=== PATIENT | male | born 1955 | race Native Hawaiian/Other Pacific Islander ===

== ENCOUNTER 2017-06-06 10:11 | Emergency (ER) | payer OTHER ==
[~2017-06-06] VITALS: Ht 162.6 cm; Wt 86.2 kg
[2017-06-06 10:15] VITALS: BP 142/80; TEMP 97.9
== END 2017-06-06 10:41 | disposition home or self-care (01) ==
LOC: ED 10:11
DX: R05 Cough (principal); R09.89 Other specified symptoms and signs involving the circulatory and respiratory systems; R09.81 Nasal congestion
CPT/HCPCS: 99281

== ENCOUNTER 2018-03-28 13:16 | Outpatient (CLI) | payer OTHER ==
[2018-03-28 13:34] LABS: POTASSIUM 3.5 mmol/L (3.6-5.2)
[2018-04-16] MEDS ORDERED: ASPIR-8181 MG PO (15:29)
[2018-04-16] MEDS ORDERED: ACET-689 PO (15:29)
[2018-04-16] MEDS ORDERED: CARV12.5 PO (15:30)
[2018-04-16] MEDS ORDERED: FURO40TA93 PO (15:30)
[2018-04-16] MEDS ORDERED: PRASUGREL10 MG PO (15:30)
[2018-04-16] MEDS ORDERED: OMEPRAZOLE20 M1 PO (15:31)
[2018-04-16] MEDS ORDERED: GLIP10TA55 PO (15:32)
[2018-04-16] MEDS ORDERED: BUMETANIDE2 MG PO (15:32)
[2018-04-16] MEDS ORDERED: BUMEX2 MG PO (18:45)
[2018-04-16] MEDS ORDERED: INSUINJP SC (18:48)
== END 2018-03-28 19:35 | disposition home or self-care (01) ==
LOC: LABW 13:16
PROVIDERS: Internal Medicine Cardiovascular Disease
DX: I42.9 Cardiomyopathy, unspecified (principal); Z79.899 Other long term (current) drug therapy
CPT/HCPCS: 36415; 80048; 83880

== ENCOUNTER 2018-04-17 20:14 | Outpatient (CLI) | payer OTHER ==
[~2018-04-17 20:14] MED LIST: ACET-689 PO; ASPIR-8181 MG PO; BUMETANIDE2 MG PO; BUMEX2 MG PO; CARV12.5 PO; FURO40TA93 PO; GLIP10TA55 PO; INSUINJP SC; OMEPRAZOLE20 M1 PO; PRASUGREL10 MG PO
== END 2018-04-17 21:21 | disposition short-term general hospital (02) ==
LOC: AMB 20:14
DX: R07.89 Other chest pain (principal)
CPT/HCPCS: A0425; A0427

== ENCOUNTER 2018-05-10 10:12 | Outpatient (CLI) | payer OTHER ==
[2018-05-10 10:34] LABS: PLATELET COUNT 168 K/uL (142-355)
[2018-05-10 10:52] LABS: PARTIAL THROMBOPLASTIN TIME 24.4 SECONDS (24.5-33.6)
== END 2018-05-10 20:08 | disposition home or self-care (01) ==
LOC: LABW 10:12
PROVIDERS: Surgery
DX: Z01.812 Encounter for preprocedural laboratory examination (principal); I70.221 Atherosclerosis of native arteries of extremities with rest pain, right leg; Z51.81 Encounter for therapeutic drug level monitoring
CPT/HCPCS: 36415; 80048; 85027; 85610; 85730

== ENCOUNTER 2018-10-20 18:44 | Emergency (ER) | payer OTHER ==
[~2018-10-20] VITALS: Ht 162.6 cm; Wt 80.7 kg
[2018-10-20 20:18] LABS: PLATELET COUNT 156 K/uL (142-355)
[2018-10-20 20:23] LABS: POTASSIUM 3.6 mmol/L (3.6-5.2)
[2018-10-20 21:30] VITALS: BP 137/69; TEMP 98.5
== END 2018-10-20 21:43 | disposition home or self-care (01) ==
LOC: ED 18:44
PROVIDERS: Emergency Medicine
DX: L89.620 Pressure ulcer of left heel, unstageable (principal)
CPT/HCPCS: 36415; 80053; 85027; 87070; 87077; 87186; 87205; 99283; J0696

== ENCOUNTER 2019-01-15 16:30 | Outpatient (CLI) | payer OTHER ==
[2019-01-15 18:06] LABS: PLATELET COUNT 198 K/uL (142-355)
[2019-01-15 18:19] LABS: POTASSIUM 3.7 mmol/L (3.6-5.2)
== END 2019-01-15 19:51 | disposition home or self-care (01) ==
LOC: LAB 16:30
PROVIDERS: Internal Medicine Infectious Disease
DX: M86.072 Acute hematogenous osteomyelitis, left ankle and foot (principal)
CPT/HCPCS: 80048; 85027

== ENCOUNTER 2019-01-22 11:32 | Outpatient (CLI) | payer OTHER ==
[2019-01-22 13:43] LABS: POTASSIUM 3.9 mmol/L (3.6-5.2)
[2019-01-22 17:08] LABS: PLATELET COUNT 233 K/uL (142-355)
== END 2019-01-22 19:15 | disposition home or self-care (01) ==
LOC: LAB 11:32
PROVIDERS: Internal Medicine Infectious Disease
DX: M86.072 Acute hematogenous osteomyelitis, left ankle and foot (principal)
CPT/HCPCS: 80048; 85027

== ENCOUNTER 2019-01-29 16:45 | Outpatient (CLI) | payer OTHER ==
[2019-01-29 21:27] LABS: PLATELET COUNT 303 K/uL (142-355)
[2019-01-29 22:08] LABS: POTASSIUM 3.8 mmol/L (3.6-5.2)
== END 2019-01-29 19:50 | disposition home or self-care (01) ==
LOC: LAB 16:45
PROVIDERS: Internal Medicine Infectious Disease
DX: E11.9 Type 2 diabetes mellitus without complications (principal); I10 Essential (primary) hypertension; M86.08 Acute hematogenous osteomyelitis, other sites
CPT/HCPCS: 80048; 85027

== ENCOUNTER 2019-02-05 10:20 | Outpatient (CLI) | payer OTHER ==
[2019-02-05 10:32] LABS: PLATELET COUNT 327 K/uL (142-355)
[2019-02-05 10:38] LABS: POTASSIUM 4.5 mmol/L (3.6-5.2)
== END 2019-02-05 23:26 | disposition home or self-care (01) ==
LOC: LAB 10:20
PROVIDERS: Internal Medicine Infectious Disease
DX: Z79.2 Long term (current) use of antibiotics (principal)
CPT/HCPCS: 80048; 85027

== ENCOUNTER 2019-02-19 11:29 | Outpatient (CLI) | payer OTHER ==
[2019-02-19 11:35] LABS: PLATELET COUNT 214 K/uL (142-355)
[2019-02-19 11:55] LABS: POTASSIUM 4.2 mmol/L (3.6-5.2)
== END 2019-02-19 23:45 | disposition home or self-care (01) ==
LOC: LAB 11:29
PROVIDERS: Internal Medicine Infectious Disease
DX: Z79.2 Long term (current) use of antibiotics (principal)
CPT/HCPCS: 80048; 85027

== ENCOUNTER 2019-02-25 12:59 | Outpatient (CLI) | payer OTHER ==
[2019-02-25 13:35] LABS: PLATELET COUNT 217 K/uL (142-355)
[2019-02-25 13:48] LABS: POTASSIUM 3.9 mmol/L (3.6-5.2)
== END 2019-02-25 22:54 | disposition home or self-care (01) ==
LOC: LAB 12:59
PROVIDERS: Internal Medicine Infectious Disease
DX: Z79.2 Long term (current) use of antibiotics (principal)
CPT/HCPCS: 80048; 85027

== ENCOUNTER 2019-03-05 10:05 | Outpatient (CLI) | payer OTHER ==
[2019-03-05 10:24] LABS: PLATELET COUNT 223 K/uL (142-355)
[2019-03-05 10:28] LABS: POTASSIUM 4.1 mmol/L (3.6-5.2)
== END 2019-03-05 20:55 | disposition home or self-care (01) ==
LOC: LAB 10:05
PROVIDERS: Internal Medicine Infectious Disease
DX: Z79.2 Long term (current) use of antibiotics (principal)
CPT/HCPCS: 80048; 85027

== ENCOUNTER 2019-03-11 10:25 | Outpatient (CLI) | payer OTHER ==
[2019-03-11 10:38] LABS: PLATELET COUNT 318 K/uL (142-355)
[2019-03-11 10:55] LABS: POTASSIUM 4.1 mmol/L (3.6-5.2)
== END 2019-03-11 16:00 | disposition home or self-care (01) ==
LOC: LAB 10:25
PROVIDERS: Internal Medicine Infectious Disease
DX: Z79.2 Long term (current) use of antibiotics (principal)
CPT/HCPCS: 80048; 85027

== ENCOUNTER 2019-03-19 14:42 | Outpatient (CLI) | payer OTHER ==
[2019-03-19 15:00] LABS: PLATELET COUNT 260 K/uL (142-355); POTASSIUM 4.6 mmol/L (3.6-5.2)
== END 2019-03-19 23:59 | disposition home or self-care (01) ==
LOC: LAB 14:42
PROVIDERS: Internal Medicine Infectious Disease
DX: Z79.2 Long term (current) use of antibiotics (principal)
CPT/HCPCS: 80048; 85027

== ENCOUNTER 2019-07-01 18:40 | Outpatient (CLI) | payer OTHER | END 2019-07-01 18:47 | disposition short-term general hospital (02) | LOC: AMB 18:40 | DX: I46.9 Cardiac arrest, cause unspecified (principal) | CPT/HCPCS: A0425; A0433 ==

== ENCOUNTER 2019-07-01 18:49 | Emergency (ER) | payer OTHER ==
[~2019-07-01] VITALS: Ht 172.7 cm; Wt 81.6 kg
== END 2019-07-01 21:10 | disposition expired ==
LOC: ED 18:49
DX: I46.9 Cardiac arrest, cause unspecified (principal)
CPT/HCPCS: 92950; 99291